=== PATIENT | female | born 1995 | race Asian ===

== ENCOUNTER 2023-09-26 21:04 | Emergency (ER) | payer OTHER, SELFPAY ==
--- NOTE | 2023-09-26 21:41 | DI.US.S_ITS ---
PROCEDURE: US PELVIC COMPLETE INDICATIONS: BLEEDING 16 DAYS POST TECHNIQUE: Real-time scanning was performed of the pelvic organs, with image documentation. Additional endovaginal scanning was necessary due to incomplete visualization of the adnexal and endometrial structures by transabdominal scanning. COMPARISON: None. FINDINGS: Uterus: Uterus is anteverted and normal in size at 9.7 x 6.4 x 9.0 cm. The myometrium is homogeneous. The endometrium measures 18.4 mm combined thickness. The endometrium is heterogeneous. No increased vascularity. Ovaries: The right ovary measures 1.6 x 3.5 x 3.5 cm, with a calculated ovarian volume of 10.2 cc. The left ovary is not seen. Normal sonographic appearance of the right ovary. Other: No pathologic free abdominal or pelvic fluid. IMPRESSION: Endometrium is thickened measuring up to 18.4 mm and heterogeneous without vascularity. Retained products of conception is not excluded. Right ovary is within normal limits. Left ovary is not seen. We strive to produce accurate, complete, and clear reports of imaging services. To assist us in improving patient care, this report was composed using standard report templates and voice recognition software. Therefore, it may contain abnormal punctuation, insertions and/or omissions. Occasional wrong-word or sound-alike substitutions may occur. Though we review the report and make efforts to correct it, we do recommend that the report be read carefully in proper context to recognize any text inaccuracies. Dictated by: Ponce Quinonez M.D. on 09/26/2023 at 22:35 Approved by: Ponce Quinonez M.D. on 09/26/2023 at 22:36
[2023-09-26 21:43] VITALS: BP 139/81; PULSE 76; RESP 18; TEMP 36.8; O2SAT 99; BMI 29.9
[2023-09-26 22:09] LABS: Add Manual Diff / Slide Review NO; Basophils Absolute Auto 0 /uL (0-100); Basophils Percent Auto 0.3 % (0-2); Eosinophils Absolute Auto 300 /uL (0-450); Eosinophils Percent Auto 3.2 % (2-4); Hematocrit 33.7 % (36-46); Hemoglobin 11.5 g/dL (12.0-16.0); Lymphocytes Absolute Auto 1400 /uL (1100-4500); Lymphocytes Percent Auto 17.8 % (25-40); Mean Corpuscular Hemoglobin 31.6 PG (26-34); Monocytes Absolute Auto 500 /uL (0-900); Monocytes Percent Auto 5.9 % (3-14); Neutrophils Absolute Auto 5700 /uL (1500-7000); Neutrophils Percent Auto 72.8 % (50-75); Platelet Count 298 X10^3/uL (150-400); Red Blood Cell Count 3.63 X10^6/uL (4.0-5.2); Red Cell Distribution Width 13.2 % (11.6-14.8); White Blood Cell Count 7.8 X10^3/uL (4.5-11.0)
[2023-09-26 22:16] LABS: Alanine Aminotransferase 18 IU/L (<35); Albumin 4.1 g/dL (3.5-5.0); Albumin Globulin Ratio 1.1 (1.0-2.8); Alkaline Phosphatase 77 U/L (38-126); BUN Creatinine Ratio 17.5 (6-22); Bilirubin Total 0.4 mg/dL (0.2-1.3); Blood Urea Nitrogen 10 mg/dL (7-17); Calcium 9.1 mg/dL (8.4-10.2); Carbon Dioxide 26 mmol/L (22-32); Chloride 103 mmol/L (98-107); Estimated Glomerular Filt Rate > 60 mL/min (>60); Globulin 3.8 g/dL (1.7-4.1); Glucose 116 mg/dL (70-100); HEMOLYSIS < 15 (0-50); Potassium 3.2 mmol/L (3.4-5.1); Sodium 140 mmol/L (137-145); Total Protein 7.9 g/dL (6.3-8.2)
--- NOTE | 2023-09-26 23:56 | PC.NURSE ---
Patient has been bleeding consistently since delivery on 09/10. Patient states she passed another large clot this evening, associated with diffuse lower abd pain and RLQ discomfort. Denies fevers, chills or dizziness. Does report a dull headache
--- NOTE | 2023-09-27 00:11 | ED.PREGNANCY ---
HPI - General Chief complaint: Vaginal Bleeding Stated complaint: heavy bleeding 17 days post delivery Time Seen by Provider: 09/26/23 23:38 Mode of arrival: Family Vehicle History of Present Illness HPI Narrative: 28-year-old female who presents with history of persistent vaginal bleeding, currently 17 days . Patient and spouse report expected heavy bleeding and clots after delivery and another episode on 09/21. Patient reports that large clots with associated abdominal discomfort began several hours prior to arrival. No bright red blood per vagina reported. No other complaints or associated symptoms noted. Patient arrives via private vehicle patient is ambulatory awake, alert in no apparent distress. Review of Systems Review of Systems Narrative: See HPI for pertinent positives otherwise review of systems negative Exam Narrative Exam Narrative: General: Awake, alert, in no apparent distress HEENT: Normocephalic, atraumatic, pupils equal and reactive to light, oropharynx clear, oral mucosa moist Neck: Supple Cardiovascular: 2+ radial bilateral, regular rhythm/rate Pulmonary: Regular respirations, no respiratory distress Abdominal: Soft, nontender, nondistended : Normal external genitalia Back: Nontender, normal motion Extremities: No tenderness of bilateral upper/lower extremities Skin: Warm, dry, intact, no rashes Neuro: No focal neurological deficits, moving all 4 extremities equally, normal speech Psych: Normal mood, normal affect Initial Vital Signs Initial Vital Signs: Vital Signs Temperature 98.2 F 09/26/23 21:43 Pulse Rate 76 09/26/23 21:43 Respiratory Rate 18 09/26/23 21:43 Blood Pressure 139/81 09/26/23 21:43 Pulse Oximetry 99 09/26/23 21:43 Oxygen Delivery Method Room Air 09/26/23 21:43 Course Orders Ordered: Discontinued Medications Misoprostol (Misoprostol 200 Mcg Tablet) 800 mcg PO NOW ONE Stop: 09/27/23 00:14 Last Admin: 09/27/23 00:35 Dose: 800 mcg Documented By: [facility] Vital Signs Vital signs: Vital Signs - 8 hr 09/26/23 21:43 Temperature 98.2 F Pulse Rate 76 Respiratory Rate 18 Blood Pressure 139/81 Pulse Oximetry 99 Oxygen Delivery Method Room Air MDM - OB/Uterine Contractions Differential Diagnosis Differential diagnosis: Likely hemorrhage and other (retained products of conception) Lab Data 09/26/23 21:55 09/26/23 21:55 Labs: Lab Results 09/26/23 Range/Units 21:55 WBC 7.8 (4.5-11.0) X10^3/uL RBC 3.63 L (4.0-5.2) X10^6/uL Hgb 11.5 L (12.0-16.0) g/dL Hct 33.7 L (36-46) % MCV 93.0 (80-100) fL MCH 31.6 (26-34) PG MCHC 34.0 (30-36) % RDW 13.2 (11.6-14.8) % Plt Count 298 (150-400) X10^3/uL Neut % (Auto) 72.8 (50-75) % Lymph % (Auto) 17.8 L (25-40) % Campbell % (Auto) 5.9 (3-14) % Eos % (Auto) 3.2 (2-4) % Baso % (Auto) 0.3 (0-2) % Neut # (Auto) 5700 (1526-5121) /uL Lymph # (Auto) 1400 (6522-5458) /uL Campbell # (Auto) 500 (0-900) /uL Eos # (Auto) 300 (0-450) /uL Baso # (Auto) 0 (0-100) /uL Sodium 140 (137-145) mmol/L Potassium 3.2 L (3.4-5.1) mmol/L Chloride 103 (98-107) mmol/L Carbon Dioxide 26 (22-32) mmol/L BUN 10 (7-17) mg/dL Creatinine 0.57 (0.52-1.04) mg/dL Estimated GFR > 60 (>60) mL/min BUN/Creatinine Ratio 17.5 (6-22) Glucose 116 H (70-100) mg/dL Calcium 9.1 (8.4-10.2) mg/dL Total Bilirubin 0.4 (0.2-1.3) mg/dL AST 27 (14-36) IU/L ALT 18 (<35) IU/L Alkaline Phosphatase 77 (38-126) U/L Total Protein 7.9 (6.3-8.2) g/dL Albumin 4.1 (3.5-5.0) g/dL Globulin 3.8 (1.7-4.1) g/dL Albumin/Globulin Ratio 1.1 (1.0-2.8) MDM Narrative Medical decision making narrative: Patient presents with vaginal bleeding. Current vital signs are within normal limits/nonactionable. Hemoglobin hematocrit/stable. Patient is afebrile. Discussed case with Obstetrics and misoprostol recommended along with outpatient follow-up after ultrasound report and possibility for retained products of conception. Discussed findings/recommendations with patient. Vaginal bleeding has decreased significantly. Patient requests discharge home. Return precautions given. Patient discharged home in stable condition and able to ambulate well without assistance at time of discharge. Discharge Plan Departure Patient Disposition: Home Clinical Impression: Vaginal bleeding Instructions: DI for Vaginal Bleeding Activity Restrictions/Additional Instructions: Return to the emergency department immediately if symptoms should persist, change or worsen. Contact OB immediately later today for follow up appointment. D&C may be required if vaginal bleeding persists as this may represent retained products of conception. Referrals: [facility] [Primary Care Provider] - As soon as possible Stand Alone Forms: Patient Portal/API
[2023-09-27] MEDS: miSOPROStoL 200 MCG TABLET 800 MCG PO (00:35)
--- NOTE | 2023-09-27 01:40 | PC.NURSE ---
pelvic completed w/ Dr. العراقي, this RN at bedside for registered veterinary technician. pt tolerated well.
[2023-09-27 01:48] VITALS: BP 131/80; PULSE 80; RESP 16; O2SAT 98
[2023-09-27 15:25] LABS: Aspartate Aminotransferase 27 IU/L (14-36)
== END 2023-09-27 01:50 | disposition home or self-care (01) ==
PROVIDERS: Emergency Provider Emergency Medicine
DX: O72.1 Other immediate postpartum hemorrhage (principal)
CPT/HCPCS: 36415; 76830; 76856; 80053; 85025; 99284; S0191

== ENCOUNTER → 2023-11-27 12:09 | Outpatient (CLI) | payer OTHER, SELFPAY ==
--- NOTE | 2023-11-27 | DI.MRI.S_ITS ---
PROCEDURE: MR KNEE RT WO CON INDICATIONS: knee pain TECHNIQUE: Noncontrast sagittal PD fast spin echo and T2 fast spin echo with fat saturation, sagittal 3-D FLASH with fat saturation; coronal T1 spin echo and PD fast spin echo with fat saturation, and axial PD fast spin echo with fat saturation through the knee. COMPARISON: None. FINDINGS: Image quality: Excellent. Anterior cruciate ligament: Anterior cruciate ligament appears attenuated and lax, consistent with prior high-grade versus complete tearing. Posterior cruciate ligament: Intact. Medial collateral ligament: Intact. Lateral collateral ligament: Intact. Medial meniscus: Intact. Lateral meniscus: Intact. Medial and lateral tendons: The semimembranosus tendon insertions appear intact. Visualized portions of the pes anserinus tendons appear normal. The popliteus tendon is intact. Iliotibial band appears normal. Anterior structures: The quadriceps and patellar tendons appear intact. No patellar subluxation. No femoral trochlear dysplasia or ventral trochlear prominence. No edema in the infrapatellar fat pad. Bones and cartilage: No bone marrow contusions or fractures. Medial femorotibial cartilage: Intact. Lateral femorotibial cartilage: Intact. Patellofemoral cartilage: Intact. Soft tissues: There is physiologic knee joint fluid. Trace medial popliteal cyst. The musculature surrounding the knee is normal in bulk. IMPRESSION: 1. 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 Posterior cruciate ligament is intact. 2. No acute trabecular bone injury. Medial and lateral menisci are intact. No focal cartilage defect. Approved by: Dann Mccormick M.D. on 11/27/2023 at 16:14
== END ==
LOC: MRI 12:11
PROVIDERS: Referring Provider Nurse Practitioner Family; Visit Provider Nurse Practitioner Family
DX: M25.861 Other specified joint disorders, right knee (principal)
CPT/HCPCS: 73721

== ENCOUNTER → 2024-03-03 12:28 | Outpatient (CLI) | payer OTHER, SELFPAY ==
--- NOTE | 2024-03-03 12:32 | DI.MRI.S_ITS ---
PROCEDURE: MR PELVIS WO CON INDICATIONS: Pain in right hip,Arthropathy TECHNIQUE: Noncontrast coronal and axial T1 spin echo and STIR through the bony pelvis. COMPARISON: [facility], MR, MR HIP RT WO CON, 03/03/2024, 13:12. FINDINGS: Image quality: Excellent. Bones: The visualized lower lumbar spine, the sacrum, and bilateral posterior iliac wing demonstrate normal marrow signal. Mild disc bulge at L4-5, without significant central canal stenosis. There is mild marrow edema about the pubic symphysis, nonspecific and may be degenerative. Bilateral hips are well aligned. No acute fracture or dislocation of either hip. No avascular necrosis of either femoral head. Joint space of bilateral hips are well maintained. Tendons: The right iliopsoas, and adductor tendon are unremarkable. The right hamstring, he right gluteal minimus and gluteal medius unremarkable. The left iliopsoas, and adductor tendon are unremarkable.the left hamstring in the left gluteal minimus and medius tendons are unremarkable. Soft tissues: The uterus is anteverted. Small follicles are seen in bilateral ovaries. IMPRESSION: Mild marrow edema about the pubic symphysis, nonspecific maybe degenerative. Dictated by: Mirna Rodarte M.D. on 03/03/2024 at 20:47 Approved by: Mirna Rodarte M.D. on 03/03/2024 at 20:53
--- NOTE | 2024-03-03 12:32 | DI.MRI.S_ITS ---
PROCEDURE: MR HIP RT WO CON INDICATIONS: Pain in right hip,Arthropathy TECHNIQUE: Noncontrast coronal T1 spin echo and STIR through the bony pelvis. Coronal and axial T2 fast spin echo with fat saturation, sagittal T1 spin echo, and oblique axial T2 fast spin echo with fat saturation through the hip. COMPARISON: None. FINDINGS: Image quality: Excellent. Bones and joints: Mild marrow edema about the pubic symphysis, nonspecific and may be degenerative. The marrow signal of the visualized lower lumbar spine, the sacrum, and bilateral posterior iliac wing are remarkable. No acute fracture or dislocation of either hip. No significant right or left hip effusion. Tendons and ligaments: The right iliopsoas, and adductor tendon are unremarkable. The right hamstring, right gluteal minimus and right gluteal medius are remarkable. Labrum and cartilage: Tear of the anterior superior labrum. Tear of the posterior labrum as well (series 7, image 16). No paralabral cyst. Mild chondral thinning of the superior right femoral head. Soft tissues: The uterus is anteverted. Small follicles are seen in bilateral ovaries. IMPRESSION: 1. Labral tear as described above. 2. Mild chondrosis of the right hip. 3. Mild marrow edema of the pubic symphysis, nonspecific and may be degenerative. Dictated by: Mirna Rodarte M.D. on 03/03/2024 at 20:56 Approved by: Mirna Rodarte M.D. on 03/03/2024 at 21:01
== END ==
LOC: MRI 12:29
PROVIDERS: Referring Provider Nurse Practitioner Family; Visit Provider Nurse Practitioner Family
DX: S73.191A Other sprain of right hip, initial encounter (principal); M94.251 Chondromalacia, right hip; M25.551 Pain in right hip; M12.9 Arthropathy, unspecified
CPT/HCPCS: 72195; 73721